=== PATIENT | male | born 1960 | race African-American/Black ===

== ENCOUNTER → 2017-08-20 | Day surgery (SDC) | payer BC ==
[2017-08-19 09:44] LABS: HEMATOCRIT 37.6 % (38.2-49.6); HEMOGLOBIN 12.5 g/dL (14.0-18.0); LYMPHOCYTES # (AUTO) 1.3 (1.0-3.2); LYMPHOCYTES % 17.6 % (18.0-39.1); MEAN CORPUSCULAR HEMOGLOBIN 31.3 pg (28-32); MEAN CORPUSCULAR HGB CONC 33.2 g/dL (31-35); MEAN CORPUSCULAR VOLUME 94.2 fL (81-99); MONOCYTES # (AUTO) 0.8 (0.2-0.8); MONOCYTES % 10.1 % (4.4-11.3); NEUTROPHILS # (AUTO) 5.5 (2.1-6.9); PLATELET COUNT 248 x10e3/uL (140-360); RED BLOOD COUNT 3.99 x10e6/uL (4.3-5.7)
--- NOTE | 2017-08-19 10:01 | Diagnostic Imaging Report ---
PROCEDURE: X-RAY CHEST, TWO VIEWS COMPARISON: None. INDICATIONS: PRE OPERATIVE CHEST X-RAY BIOPSY OF PROSTATE FINDINGS: LUNGS: No consolidations or edema. PLEURA: No effusions or pneumothorax. HEART \T\ MEDIASTINUM: The heart is within normal size-limits. BONES \T\ SOFT TISSUES: No acute findings. CONCLUSION: No acute thoracic abnormality. Blayne Morocho D.O. Dictated by: Blayne Morocho D.O. on 08/19/2017 at 10:05 Electronically approved by: Blayne Morocho D.O. on 08/19/2017 at 10:05
[2017-08-19 10:03] LABS: ANION GAP 12.3 mmol/L (8-16); BLOOD UREA NITROGEN 10 mg/dL (7-26); BUN/CREATININE RATIO 10 (6-25); CALCIUM 9.5 mg/dL (8.4-10.2); CARBON DIOXIDE 27 mmol/L (22-29); CHLORIDE 103 mmol/L (98-107); CREATININE, SERUM 0.96 mg/dL (0.72-1.25); EST GLOMERULAR FILTRATION RATE > 60 ML/MIN (60-); GLUCOSE 100 mg/dL (74-118); POTASSIUM 4.3 mmol/L (3.5-5.1); SODIUM 138 mmol/L (136-145)
[~2017-08-20] MED LIST: CEFTRIAXONE SOD 1 GM VIAL ONE; FENTANYL CITRATE/PF 100MCG/2 ML INJ ONE; LIDOCAINE HCL 2% LOCAL INJ 5 ML SDV VIAL INJ ONE; MIDAZOLAM HCL 2 MG/2 ML VIAL ONE; PROPOFOL IV EMULSION 10 MG/ML 20 ML VIAL ONE; SEVOFLURANE INHAL SOLN 250 ML PEN BTL ONE
--- NOTE | 2017-08-20 16:19 | Operative Report ---
DATE OF PROCEDURE: August 20, 2017 PREOPERATIVE DIAGNOSIS: Elevated prostate-specific antigen with abnormal digital rectal examination. POSTOPERATIVE DIAGNOSIS: Elevated prostate-specific antigen with abnormal digital rectal examination. PROCEDURE PERFORMED: Transrectal ultrasound and biopsy of the prostate. ANESTHESIA: General anesthesia. ESTIMATED BLOOD LOSS: Minimal. INDICATIONS: Mr. David Trejo is a 56-year-old gentleman with history of an elevation of his PSA and a multinodular prostate. He now presents for potential diagnosis of this problem. PROCEDURE IN DETAIL: The patient was brought into the operating room, placed in the left lateral decubitus position after administration of general anesthesia, was prepped and draped in the usual fashion. A digital rectal examination revealed a gland approximately 30 to 40 grams in volume with multiple nodules noted on both sides of the gland. The ultrasound probe was used to measure the gland, which measured 61 mL in volume. The gland was heterogenous without any obvious localized hypoechoic lesions. A total of 12 biopsies were taken in the standard fashion, 6 from each side, taking great care to incorporate biopsies from the base, mid, and apical portions of the gland. These were sent to pathology for microscopic analysis. At the conclusion of procedure, there was minimal bleeding noted and the patient was cleaned and returned to the supine position. Anesthesia was reversed and he was transferred to a bed and taken to the postanesthesia care unit in good condition. Of note, the needle and instrument count were correct at the conclusion of the case. Job#: [id number] [facility]RI[facility]IAN
== END | disposition home or self-care (01) ==
LOC: OR 09:42
PROVIDERS: ATTEND Urology
DX: C61 Malignant neoplasm of prostate (principal); R85.618 Other abnormal cytological findings on specimens from anus; N43.3 Hydrocele, unspecified; Z01.810 Encounter for preprocedural cardiovascular examination; Z01.812 Encounter for preprocedural laboratory examination; Z01.818 Encounter for other preprocedural examination
CPT/HCPCS: 36415; 55700; 71046; 76872; 80048; 85025; 88305; 93005; J0696; J2001; J2250; 76942